=== PATIENT | male | born 1965 | race Caucasian/White ===

== ENCOUNTER 2023-05-30 17:49 | Emergency (ER) | payer BC, SELFPAY ==
--- NOTE | ~2023-05-30 | XR_ITS ---
EXAMINATION: XR foot RT min 3V DATE: 05/30/2023 18:39 INDICATION: Posttraumatic right foot pain TECHNIQUE: Dorsoplantar, two oblique and lateral views of the right foot were obtained. COMPARISON: None. FINDINGS: Alignment is normal. No fracture. Mild polyarticular osteoarthritis at the first metatarsophalangeal and first-third tarsal metatarsal joints. Small Achilles and plantar calcaneal spurs. Soft tissues ar e unremarkable. IMPRESSION: 1. Mild degenerative skeletal changes in the right foot. No acute osseous abnormality. Reviewed, dictated and finalized at location A. IMPRESSION: 1. Mild degenerative skeletal changes in the right foot. No acute osseous abnor mality.
[2023-05-30 17:53] VITALS: BP 161/94; PULSE 111; RESP 17; TEMP 36.8; O2SAT 97
--- NOTE | 2023-05-30 18:22 | ED.LOWEXIN ---
HPI - Extremity Injury (Lower) General Chief Complaint: Extremity Injury, Lower Stated Complaint: R. foot pain Time Seen by Provider: 05/30/23 18:17 Source: patient Mode of arrival: ambulatory Limitations: no limitations History of Present Illness HPI Narrative: This is a 57 year old male that presents to the ER for right foot pain. Reports he was trying to push a mower up onto a trailer. He felt a pop in the right foot and since has had pain in his mid foot. Denies decreased ROM or numbness. Related Data Allergies Allergy/AdvReac Type Severity Reaction Status Date / Time No Known Allergies Allergy Verified 05/30/23 17:56 Review of Systems Review of Systems: CONSTITUTIONAL: Denies fever MUSCULOSKELETAL: Reports joint pain, and myalgia. NEUROLOGIC: Denies numbness All systems reviewed & are unremarkable except as noted in HPI and below PMFSH Past Medical History Medical History (Updated 05/30/23 @ 19:00 by Yanci Rodriguez PA-C) No active medical problems Social History Social History (Updated 05/30/23 @ 18:24 by Yanci Rodriguez PA-C) Smokeless tobacco user: chewing tobacco Exam Narrative: GENERAL: Well-appearing, well-nourished, and in no acute distress. HEAD: Normocephalic, atraumatic. EYES: EOMI. EXTREMITIES: Normal range of motion. No edema or obvious deformity. Achilles tendon is intact. Normal DP pulse. Normal sensation SKIN: Warm, dry, no rash. NEURO: No focal deficits. Alert and oriented x3. PSYCH: Normal mood and affect Course Course Emergency Course: Patient and family updated on work-up. Agree with plan of care Vital Signs Vital signs: Vital Signs Temperature 98.3 F 05/30/23 17:53 Pulse Rate 111 H 05/30/23 17:53 Respiratory Rate 17 05/30/23 17:53 Blood Pressure 161/94 H 05/30/23 17:53 Pulse Oximetry 97 05/30/23 17:53 Oxygen Delivery Room Air 05/30/23 17:53 Temperature 98.3 F 05/30/23 17:53 Pulse Rate 111 H 05/30/23 17:53 Respiratory Rate 17 05/30/23 17:53 Blood Pressure 161/94 H 05/30/23 17:53 Pulse Oximetry 97 05/30/23 17:53 Oxygen Delivery Room Air 05/30/23 17:53 MDM - Extremity Injury (Lower) MDM Narrative Medical decision making narrative: Patient presents to the emergency department after right foot injury. He is neurovascularly intact. Right foot x-ray shows mild degenerative skeletal changes in the right foot. No acute osseous abnormalities. Patient placed in Boni wrap and given crutches. Instructed to rest, ice and take [id number] pain medication as needed. He is to follow-up with primary provider. He was given warnings to return to the ER Differential Diagnosis Differential diagnosis: Likely ankle sprain and strain and other (foot fracture, foot sprain) Imaging Data Radiologist's impression: ITS Impressions Foot X-Ray 05/30/23 18:44 IMPRESSION: 1. Mild degenerative skeletal changes in the right foot. No acute osseous abnormality. Critical Care Time Critical Care Time Critical Care Time: No Discharge Plan Discharge Clinical Impression: Foot sprain Qualifiers: Encounter type: initial encounter Laterality: right Qualified Code(s): S93.601A - Unspecified sprain of right foot, initial encounter Patient Disposition: Home, Self-Care Condition: Stable Instructions: Foot Sprain (ED) Additional Instructions: Return to the ER if you experience fever, redness and swelling of your extremity, numbness or any other symptoms that are concerning to you Wear BONI wrap and use crutches. No weight on the affected leg until able to bear weight without pain. Ice and elevate extremity. Pain medication as needed and directed. Follow up with primary care doctor for further care. Follow-up/Referrals: Jez Wilkinson MD [Physician] - 1 Week PHYSICIAN,PHOTOGRAPHIC HAND DEVELOPER [Primary Care Provider] -
[2023-05-30 19:00] VITALS: PULSE 97; RESP 20; O2SAT 99
== END 2023-05-30 19:03 | disposition home or self-care (01) ==
PROVIDERS: Emergency Provider Physician Assistant
DX: S93.601A Unspecified sprain of right foot, initial encounter (principal); X50.0XXA Overexertion from strenuous movement or load, initial encounter
CPT/HCPCS: 73630; 99283

== ENCOUNTER 2023-06-17 14:55 | Outpatient (CLI) | payer BC, SELFPAY ==
--- NOTE | ~2023-06-17 | US_ITS ---
EXAMINATION: US carotid duplex BI DATE: 06/17/2023 15:18 INDICATION: Right carotid bruit. TECHNIQUE: Grayscale, color Doppler, and pulsed Doppler images of the cervical carotid arteries were obtained. The degree of vessel stenosis is placed in one of the following categories: normal, <50%, 5 0-69%, >=70% but less than near-occlusion, near-occlusion, or total occlusion. Note that percent sten osis relative to normal distal artery lumen diameter is indirectly measured from velocity measurement s as described by Rodney, et al. Radiology 2003; 229:[id number]. COMPARISON: None. FINDINGS: RIGHT: The right common carotid artery (CCA) peak systolic velocity (PSV) is 77 cm/s. The right internal car otid artery (ICA) PSV is 89 cm/s. The right ICA end-diastolic velocity (EDV) is 27 cm/s. The right IC A/CCA PSV ratio is 1.2. Grayscale and color Doppler images yield an estimate of <50% diameter reducti on from plaque in the ICA. There is antegrade flow in the right vertebral artery. LEFT: The left CCA PSV is 111 cm/s. The left ICA PSV is 65 cm/s. The left ICA EDV is 26 cm/s. The left ICA/ CCA PSV ratio is 0.6. Grayscale and color Doppler images yield an estimate of <50% diameter reduction from plaque in the ICA. There is antegrade flow in the left vertebral artery. IMPRESSION: 1. <50% stenosis in the right internal carotid artery. 2. <50% stenosis in the left internal carotid artery. Reviewed, dictated and finalized at location A.
== END 2023-06-17 14:56 | disposition home or self-care (01) ==
LOC: CHSIMG 14:56
PROVIDERS: PCP Internal Medicine; Visit Provider Internal Medicine
DX: R09.89 Other specified symptoms and signs involving the circulatory and respiratory systems (principal); I65.23 Occlusion and stenosis of bilateral carotid arteries
CPT/HCPCS: 93880

== ENCOUNTER 2023-08-07 08:01 | Outpatient (CLI) | payer BC, SELFPAY ==
--- NOTE | ~2023-08-07 | MR_ITS ---
MRI of the right hindfoot Clinical history: Lateral heel pain Technique: Coronal T1-weighted and proton-density fat-sat images, axial proton-density and proton-den sity fat-sat images, and sagittal proton-density and proton-density fat-sat images were acquired. Findings: Anterior and posterior talofibular ligaments, and calcaneal fibular ligament, intact. Delto id ligament is intact. Medial flexor tendons at the ankle, peroneal tendons, anterior extensor tendon s, and Achilles tendon appear intact. There is thickening and increased signal of the plantar fascia origin at the calcaneus with plantar c alcaneal spur present. There is probable minimal amorphous edema in the the posterior inferior calcan eus at the origin of the plantar fascia. There is minimal amorphous patchy marrow edema in the calcan eus, nonspecific. There is marrow edema at the base of the second metatarsal. No fractures identified . No soft tissue mass or fluid collection evident. Normal signal preserved in the sinus Tarsi. There is mild dorsal subcutaneous soft tissue edema. Impression: Findings suggestive of plantar fasciitis, as detailed above. Prominent marrow edema at the base of the second metatarsal without definite fracture. This could ref lect bone contusion, stress response, or other reactive marrow edema. Minimal patchy marrow edema in the cuboid, also nonspecific, with similar differential diagnosis. Reviewed, dictated and finalized at [facility]. Impression: Findings suggestive of plantar fasciitis, as detailed above. Prominent marrow edema at the base of the second metatarsal without definite fr acture. This could reflect bone contusion, stress response, or other reactive m arrow edema. Minimal patchy marrow edema in the cuboid, also nonspecific, with similar diffe rential diagnosis.
== END 2023-08-07 08:02 | disposition home or self-care (01) ==
LOC: CHSIMG 08:02
PROVIDERS: PCP Internal Medicine; Visit Provider Internal Medicine
DX: M79.671 Pain in right foot (principal)
CPT/HCPCS: 73718

== ENCOUNTER 2023-08-18 08:34 | Outpatient (CLI) | payer BC, SELFPAY ==
--- NOTE | 2023-08-18 11:30 | NEURO_ITS ---
Impression: # Complains of local right foot pain. # Normal Nerve Conduction Study. # No Tarsal Tunnel Syndrome. # Normal needle/EMG exam. # Clinical correlation recommended. Nerve Conduction Studies Anti Sensory Summary Table Stim Site NR Peak (ms) P-T Amp (?V) Site1 Site2 Delta-P (ms) Dist (cm) [place] (m/s) Right Sup Fibular Anti Sensory (Ant Lat Mall) 14 cm 3.4 10.1 14 cm Ant Lat Mall 3.4 16.0 47 Right Sural Anti Sensory (Lat Mall) Calf 3.3 10.6 Calf Lat Mall 3.3 16.0 48 Motor Summary Table Stim Site NR Onset (ms) O-P Amp (mV) Site1 Site2 Delta-0 (ms) Dist (cm) [place] (m/s) Right Lateral Plantar Motor (ADM) Med Mall 4.0 0.6 Right Peroneal Motor (Vastus Med) Ankle 3.8 2.3 Popit Ankle 8.2 39.0 48 Popit 12.0 2.2 Right Tibial Motor (Abd Paz Brev) Ankle 4.1 2.6 Knee Ankle 8.4 40.0 48 Knee 12.5 2.4 F Wave Studies NR F-Lat (ms) L-R F-Lat (ms) Right Peroneal (Mrkrs) (EDB) 50.94 Right Tibial (Mrkrs) (Abd Hallucis) 51.50 EMG Side Muscle Nerve Root Ins Act Fibs Amp Dur Recrt Comment Right AntTibialis Dp Br Fibular L4-5 Nml Nml Nml Nml Nml Right Gastroc Tibial S1-2 Nml Nml Nml Nml Nml Right Fibularis Long Sup Br Fibular L5-S1 Nml Nml Nml Nml Nml Right Flex Dig Long Tibial L5-S2 Nml Nml Nml Nml Nml Right Ext Dig Brev Dp Br Fibular L5, S1 Nml Nml Nml Nml Nml MTDD
== END 2023-08-18 08:35 | disposition home or self-care (01) ==
PROVIDERS: PCP Internal Medicine; Visit Provider Internal Medicine
DX: G57.91 Unspecified mononeuropathy of right lower limb (principal)
CPT/HCPCS: 95886; 95908

== ENCOUNTER 2023-10-27 19:16 | Emergency (ER) | payer BC, SELFPAY ==
[2023-10-27 19:18] VITALS: BP 188/88; PULSE 87; RESP 16; TEMP 36.2; O2SAT 99
--- NOTE | 2023-10-27 19:45 | ED.GENADULT ---
HPI - General Adult General Chief complaint: Ear Stated complaint: rubber end of ear bud stuck in ear Time Seen by Provider: 10/27/23 19:38 History of Present Illness HPI narrative: Patient is a 58-year-old gentleman presents emerged from with chief complaint of foreign body in the left ear. Patient reports that on Wednesday he put his ear buds in his left ear and the rubber tip came off in his ear canal patient reports he has been in and out since Wednesday and reports that day feels a little fullness sensation in his left ear. Related Data Home Medications Medication Instructions Recorded Confirmed No Home Medications 09/22/23 09/22/23 Allergies Allergy/AdvReac Type Severity Reaction Status Date / Time No Known Allergies Allergy Verified 10/27/23 19:25 Review of Systems Review of Systems: A 10 system review of systems was completed on the patient and is negative except for what is stated in the HPI. Nursing and ancillary documentation was reviewed. [facility] Past Medical History Medical History Neuritis of right foot No active medical problems Plantar fasciitis of right foot Surgical History Surgical History H/O left wrist surgery Family History Family History Unknown Hypertension Heart disease Arthritis Hyperlipidemia Social History Social History Smoking status: Never smoker Smokeless tobacco user: chewing tobacco Alcohol intake: current Substance use: never Occupation/Education: occupation Additional occupation/education comments: alteration worker at [employer] Gender identity (if verbalized by the patient): Male Exam Narrative: GENERAL: Well-appearing, well-nourished, and in no acute distress. HEAD: Normocephalic, atraumatic. EYES: PERRLA and EOMI. ENT: Nares clear, no rhinorrhea or epistaxis. Mucous membranes moist. there is a black rubber ear bud tip in the left external auditory canal NECK: Supple. CHEST: Clear to auscultation. No respiratory distress. HEART: Regular rate and rhythm. No murmur heard. Normal peripheral pulses. ABDOMEN: Soft, nontender, nondistended, normal active bowel sounds. EXTREMITIES: Normal range of motion. No edema. SKIN: Warm, dry, no rash. NEURO: No focal deficits. Alert and oriented x3. PSYCH: Normal mood and affect. Course Vital Signs Vital signs: Vital Signs Temperature 36.2 C L 10/27/23 19:18 Pulse Rate 87 10/27/23 19:18 Respiratory Rate 16 10/27/23 19:18 Blood Pressure 188/88 H 10/27/23 19:18 Pulse Oximetry 99 10/27/23 19:18 Oxygen Delivery Room Air 10/27/23 19:18 Temperature 36.2 C L 10/27/23 19:18 Pulse Rate 87 10/27/23 19:18 Respiratory Rate 16 10/27/23 19:18 Blood Pressure 188/88 H 10/27/23 19:18 Pulse Oximetry 99 10/27/23 19:18 Oxygen Delivery Room Air 10/27/23 19:18 Procedures FB Removal Ear Foreign Body #1: Foreign Body Removal Date: 10/27/23 Foreign Body Removal Time: 19:47 Location: ear canal (L) Foreign Body Suspected: other plastic TM intact pre-procedure: yes Foreign Body Removed: yes Foreign Body Removal Technique: forceps Tympanic Membrane Intact Post Procedure: Yes Patient Tolerated Procedure: well Complications: none Medical Decision Making MDM Narrative Medical decision making narrative: difficult diagnosis includes foreign body, ear trauma. Foreign body was removed patient tolerated the procedure well patient discharged home stable condition Vital Signs Vital Signs: Vital Signs Temperature 36.2 C L 10/27/23 19:18 Pulse Rate 87 10/27/23 19:18 Respiratory Rate 16 10/27/23 19:18 Blood Pressure 188/88 H 10/27/23 19:18 Pulse Oximetry
== END 2023-10-27 19:55 | disposition home or self-care (01) ==
PROVIDERS: Emergency Provider Emergency Medicine; PCP Internal Medicine
DX: T16.2XXA Foreign body in left ear, initial encounter (principal); W44.G1XA Audio device entering into or through a natural orifice, initial encounter
CPT/HCPCS: 69200; 99282